=== PATIENT | female | born 1995 | race African-American/Black ===

== ENCOUNTER 2018-03-31 07:25 | Inpatient (IN) ==
[2018-03-31] MEDS ORDERED: ONDANSETRON 4 MG/2 ML VIAL IV PRN (07:50)
[2018-03-31] MEDS ORDERED: BUTORPHANOL 2 MG/ML VIAL IV PRN (07:50)
[2018-03-31] MEDS ORDERED: MEPERIDINE 50 MG/1 ML VIAL IV PRN (07:50)
[2018-03-31] MEDS ORDERED: AMPICILLIN INJ 2,000 MG in SODIUM CHLORIDE 0.9% 100 ML IV ONE (07:52)
[2018-03-31] MEDS ORDERED: LACTATED RINGERS 1,000 ML IV SCH ×2 (08:00→12:30)
[2018-03-31] MEDS ORDERED: OXYTOCIN/LR 20 UNIT/1,000 ML BAG IV SCH (08:00)
[2018-03-31] MEDS ORDERED: ONDANSETRON 4 MG/2 ML VIAL IV ONE (08:40)
[2018-03-31] MEDS ORDERED: hydrOXYzine HCL 25 MG/1 ML VIAL IM PRN (08:40)
[2018-03-31] MEDS ORDERED: diphenhydrAMINE 50 MG/1 ML VIAL IV PRN ×2 (08:40)
[2018-03-31] MEDS ORDERED: CITRIC ACID/SODIUM CITRATE 30 ML UDCUP PO ONE (08:40)
[2018-03-31] MEDS ORDERED: PROMETHAZINE 25 MG/1 ML VIAL IM ONE (08:40)
[2018-03-31] MEDS ORDERED: ePHEDrine 50 MG/ML AMP IV PRN (08:40)
[2018-03-31] MEDS ORDERED: FAMOTIDINE 20 MG/2 ML VIAL IV ONE (08:40)
[2018-03-31] MEDS ORDERED: NALOXONE 0.4 MG/ML VIAL IV PRN (08:40)
[2018-03-31 08:41] LABS: Basophils # 0.1 10*3/uL (0.0-0.2); Basophils % 0.6 % (0.0-0.8); Eosinophils # 0.2 10*3/uL (0.0-0.87); Eosinophils % 1.9 % (0.00-10.9); Hematocrit 31.6 VOL% (35.7-47.0); Hemoglobin 10.1 GM/DL (12.0-16.0); Immature Granulocytes % 2.5 %; Immature Granulocytes Absolute 0.25 #; Lymphocytes # 2.1 10*3/uL (1.4-4.0); Mean Corpuscular Hemoglobin 28 PG (27-34); Mean Corpuscular Volume 87.5 FL (87-102); Mean Platelet Volume 10.6 FL (9.6-12.0); Monocytes # 0.9 10*3/uL (0.11-0.8); Monocytes % 9.3 % (1.7-12.7); Neutrophils # 6.6 10*3/uL (1.4-7.4); Neutrophils % 64.7 % (38.7-73.9); Platelet Count 266 T/CUMM (130-400); Red Blood Count 3.61 MC/CUMM (3.8-5.5); Red Cell Distribution Width 14.1 % (9.3-17.3); White Blood Count 10.1 T/CUMM (4-12)
[2018-03-31] MEDS ORDERED: fentaNYL 2 MCG/ROPIV 0.2% EPID 100 ML EPIDURAL SCH (09:00)
[2018-03-31 09:06] LABS: Albumin 2.7 G/DL (3.4-5.0); Bilirubin,Total 0.4 MG/DL (0.2-1.0); Calcium 8.4 MG/DL (8.5-10.1)
[2018-03-31 09:07] LABS: Osmolality,Calculated 272.8 MOS/KG (273-304); Potassium 3.8 MMOL/L (3.5-5.1)
[2018-03-31 10:09] LABS: Rapid Plasma Reagin Confirm NONREACTIVE (Nonreactive)
[2018-03-31] MEDS ORDERED: BISACODYL 10 MG SUPP RECTAL PRN (12:16)
[2018-03-31] MEDS ORDERED: MAGNESIUM HYDROXIDE SUSP 30 ML UDCUP PO PRN (12:16)
[2018-03-31] MEDS ORDERED: ACETAMINOPHEN 325 MG TABLET PO PRN (12:16)
[2018-03-31] MEDS: IBUPROFEN 800 MG TABLET PO PRN ×2 (13:56→21:53)
[2018-03-31] MEDS: DOCUSATE SODIUM 100 MG CAPSULE PO SCH (20:29)
[2018-04-01 07:08] LABS: Basophils % 0.3 % (0.0-0.8); Eosinophils # 0.2 10*3/uL (0.0-0.87); Eosinophils % 1.5 % (0.00-10.9); Hematocrit 28.1 VOL% (35.7-47.0); Hemoglobin 9.3 GM/DL (12.0-16.0); Immature Granulocytes % 1.2 %; Immature Granulocytes Absolute 0.15 #; Lymphocytes # 2.8 10*3/uL (1.4-4.0); Lymphocytes % 23.2 % (21.3-54.2); Mean Corpuscular HGB Conc 33.1 GM/DL (32-36); Mean Corpuscular Hemoglobin 29 PG (27-34); Mean Corpuscular Volume 86.5 FL (87-102); Monocytes % 7.8 % (1.7-12.7); Neutrophils # 8.1 10*3/uL (1.4-7.4); Platelet Count 245 T/CUMM (130-400); Red Blood Count 3.25 MC/CUMM (3.8-5.5); Red Cell Distribution Width 14.2 % (9.3-17.3); White Blood Count 12.2 T/CUMM (4-12)
[2018-04-01] MEDS: IBUPROFEN 800 MG TABLET PO PRN ×2 (08:18→19:46)
[2018-04-01] MEDS: valACYclovir 500 MG TABLET PO SCH (08:18)
[2018-04-01] MEDS: MULTIVITAMIN (PRENATAL) TABLET PO SCH (08:18)
[2018-04-01] MEDS: DOCUSATE SODIUM 100 MG CAPSULE PO SCH ×2 (08:18→19:46)
[2018-04-01] MEDS: IRON (CARBONYL)/VIT C/B12/FA TABLET PO SCH (11:51)
[2018-04-02] MEDS: DOCUSATE SODIUM 100 MG CAPSULE PO SCH ×2 (01:40→08:06)
[2018-04-02] MEDS: IBUPROFEN 800 MG TABLET PO PRN (08:06)
[2018-04-02] MEDS: IRON (CARBONYL)/VIT C/B12/FA TABLET PO SCH (08:06)
[2018-04-02] MEDS: valACYclovir 500 MG TABLET PO SCH (08:06)
[2018-04-02] MEDS: MULTIVITAMIN (PRENATAL) TABLET PO SCH (08:06)
[2018-04-02 08:14] VITALS: BP 115/64
[2018-04-02] MEDS ORDERED: DIPH/TET/ACEL PERT BOOSTER VACCINE 0.5 ML VIAL IM ONE (09:16)
== END 2018-04-02 10:55 | disposition home or self-care (01) | DRG 560 ==
LOC: N.LDOUT 07:25 → N.LD 07:26 → N.OB 12:16
PROVIDERS: ADMIT Obstetrics & Gynecology; ATTEND Obstetrics & Gynecology

== ENCOUNTER 2019-06-09 19:48 | Inpatient (IN) ==
[2019-06-09] MEDS ORDERED: DINOPROSTONE 10 MG VAG.INSERT VAG ONE (20:29)
[2019-06-09] MEDS ORDERED: ONDANSETRON 4 MG/2 ML VIAL IV PRN (20:29)
[2019-06-09] MEDS ORDERED: MEPERIDINE 50 MG/1 ML VIAL IV PRN (20:29)
[2019-06-09] MEDS ORDERED: BUTORPHANOL 2 MG/ML VIAL IV PRN (20:29)
[2019-06-09] MEDS: LACTATED RINGERS 1,000 ML IV SCH (20:30)
[2019-06-09 20:50] LABS: Basophils % 0.3 % (0.0-0.8); Eosinophils # 0.3 10*3/uL (0.0-0.87); Eosinophils % 2.3 % (0.00-10.9); Hematocrit 29.5 VOL% (35.7-47.0); Hemoglobin 9.4 GM/DL (12.0-16.0); Immature Granulocytes % 1.6 %; Immature Granulocytes Absolute 0.21 #; Lymphocytes # 2.8 10*3/uL (1.4-4.0); Lymphocytes % 21.6 % (21.3-54.2); Mean Corpuscular HGB Conc 31.9 GM/DL (32-36); Mean Corpuscular Volume 85.3 FL (87-102); Mean Platelet Volume 10.4 FL (9.6-12.0); Monocytes % 8.8 % (1.7-12.7); Neutrophils % 65.4 % (38.7-73.9); Platelet Count 259 T/CUMM (130-400); Red Blood Count 3.46 MC/CUMM (3.8-5.5); Red Cell Distribution Width 14.4 % (9.3-17.3); White Blood Count 12.8 T/CUMM (4-12)
[2019-06-09] MEDS ORDERED: AMPICILLIN INJ 2,000 MG in SODIUM CHLORIDE 0.9% 100 ML IV ONE (22:41)
[2019-06-10] MEDS ORDERED: AMPICILLIN INJ 2,000 MG in SODIUM CHLORIDE 0.9% 100 ML IV ONE
[2019-06-10 02:14] LABS: Rapid Plasma Reagin Confirm REACTIVE (Nonreactive)
[2019-06-10] MEDS: AMPICILLIN INJ 1,000 MG in SODIUM CHLORIDE 0.9% 100 ML IV SCH ×2 (04:12→08:08)
[2019-06-10] MEDS ORDERED: OXYTOCIN/LR 20 UNIT/1,000 ML BAG IV ONE ×2 (04:42→13:20)
[2019-06-10] MEDS ORDERED: OXYTOCIN/LR 20 UNIT/1,000 ML BAG IV SCH (06:00)
[2019-06-10] MEDS: LACTATED RINGERS 1,000 ML IV SCH (06:14)
[2019-06-10] MEDS ORDERED: LACTATED RINGERS 1,000 ML IV ONE (08:58)
[2019-06-10] MEDS ORDERED: NALOXONE 0.4 MG/ML VIAL IV PRN (08:58)
[2019-06-10] MEDS ORDERED: FAMOTIDINE 20 MG/2 ML VIAL IV ONE (08:58)
[2019-06-10] MEDS ORDERED: diphenhydrAMINE 50 MG/1 ML VIAL IV PRN ×2 (08:58)
[2019-06-10] MEDS ORDERED: CITRIC ACID/SODIUM CITRATE 30 ML UDCUP PO ONE (08:58)
[2019-06-10] MEDS ORDERED: ePHEDrine 50 MG/ML AMP IV PRN (08:58)
[2019-06-10] MEDS ORDERED: fentaNYL 2 MCG/ROPIV 0.2% EPID 100 ML EPIDURAL SCH (09:00)
[2019-06-10] MEDS ORDERED: IBUPROFEN 800 MG TABLET PO PRN (15:14)
[2019-06-10] MEDS ORDERED: IBUPROFEN 800 MG TABLET ONE (15:16)
[2019-06-10] MEDS ORDERED: MAGNESIUM HYDROXIDE SUSP 30 ML UDCUP PO PRN (18:38)
[2019-06-10] MEDS ORDERED: BISACODYL 10 MG SUPP RECTAL PRN (18:38)
[2019-06-10] MEDS ORDERED: ACETAMINOPHEN 325 MG TABLET PO PRN (18:38)
[2019-06-10] MEDS ORDERED: ONDANSETRON 4 MG/2 ML VIAL IV PRN (18:38)
[2019-06-10] MEDS ORDERED: LACTATED RINGERS 1,000 ML IV SCH (19:00)
[2019-06-10] MEDS: KETOROLAC 15 MG/1 ML VIAL IV SCH (19:46)
[2019-06-10] MEDS ORDERED: DOCUSATE SODIUM 100 MG CAPSULE PO SCH (21:00)
[2019-06-10] MEDS: DOCUSATE SODIUM 100 MG CAPSULE PO SCH (21:24)
[2019-06-11] MEDS: KETOROLAC 15 MG/1 ML VIAL IV SCH (01:22)
[2019-06-11] MEDS: IBUPROFEN 800 MG TABLET PO SCH ×3 (01:39→17:51)
[2019-06-11 06:22] LABS: Basophils % 0.4 % (0.0-0.8); Eosinophils # 0.2 10*3/uL (0.0-0.87); Eosinophils % 1.7 % (0.00-10.9); Hematocrit 27.9 VOL% (35.7-47.0); Hemoglobin 8.7 GM/DL (12.0-16.0); Immature Granulocytes % 1.2 %; Immature Granulocytes Absolute 0.13 #; Lymphocytes # 2.7 10*3/uL (1.4-4.0); Lymphocytes % 24.2 % (21.3-54.2); Mean Corpuscular HGB Conc 31.2 GM/DL (32-36); Mean Corpuscular Volume 86.4 FL (87-102); Mean Platelet Volume 10.5 FL (9.6-12.0); Monocytes % 8.4 % (1.7-12.7); Neutrophils % 64.1 % (38.7-73.9); Platelet Count 211 T/CUMM (130-400); Red Blood Count 3.23 MC/CUMM (3.8-5.5); Red Cell Distribution Width 14.6 % (9.3-17.3); White Blood Count 11.3 T/CUMM (4-12)
[2019-06-11] MEDS: MULTIVITAMIN (PRENATAL) TABLET PO SCH (09:56)
[2019-06-11] MEDS: ACYCLOVIR 800 MG TABLET PO SCH (09:56)
[2019-06-11] MEDS: DOCUSATE SODIUM 100 MG CAPSULE PO SCH ×2 (09:56→21:18)
[2019-06-11] MEDS: IRON (CARBONYL)/VIT C/B12/FA TABLET PO SCH (17:54)
[2019-06-12] MEDS: IBUPROFEN 800 MG TABLET PO SCH (03:58)
[2019-06-12 07:27] VITALS: BP 135/69
[2019-06-12] MEDS: DOCUSATE SODIUM 100 MG CAPSULE PO SCH (09:11)
[2019-06-12] MEDS: MULTIVITAMIN (PRENATAL) TABLET PO SCH (09:11)
[2019-06-12] MEDS: ACYCLOVIR 800 MG TABLET PO SCH (09:11)
[2019-06-12] MEDS: IRON (CARBONYL)/VIT C/B12/FA TABLET PO SCH (09:11)
== END 2019-06-12 12:00 | disposition home or self-care (01) | DRG 560 ==
LOC: N.LDOUT 19:48 → N.LD 19:49 → N.OB 06-10 13:59
PROVIDERS: ADMIT Obstetrics & Gynecology; ATTEND Obstetrics & Gynecology

== ENCOUNTER 2021-01-18 09:10 | Inpatient (IN) ==
[2021-01-18] MEDS ORDERED: ONDANSETRON 4 MG/2 ML VIAL IV PRN ×2 (09:52→19:30)
[2021-01-18] MEDS ORDERED: LACTATED RINGERS 1,000 ML IV SCH ×2 (10:00→19:30)
[2021-01-18] MEDS ORDERED: OXYTOCIN/LR 20 UNIT/1,000 ML BAG IV SCH (10:00)
[2021-01-18 10:20] LABS: Basophils # 0.1 10*3/uL (0.0-0.2); Basophils % 0.5 % (0.0-0.8); Eosinophils # 0.2 10*3/uL (0.0-0.87); Eosinophils % 1.2 % (0.00-10.9); Hematocrit 32.6 VOL% (35.7-47.0); Hemoglobin 10.3 GM/DL (12.0-16.0); Immature Granulocytes % 4.5 %; Immature Granulocytes Absolute 0.58 #; Lymphocytes # 2.1 10*3/uL (1.4-4.0); Mean Corpuscular HGB Conc 31.6 GM/DL (32-36); Mean Corpuscular Volume 81.7 FL (87-102); Mean Platelet Volume 9.7 FL (9.6-12.0); Monocytes % 12.9 % (1.7-12.7); Neutrophils % 64.9 % (38.7-73.9); Platelet Count 325 T/CUMM (130-400); Red Blood Count 3.99 MC/CUMM (3.8-5.5); Red Cell Distribution Width 14.6 % (9.3-17.3); White Blood Count 12.8 T/CUMM (4-12)
[2021-01-18 10:39] LABS: Band Neutrophils 1 % (0-10); Eosinophils 2 % (0-10); Lymphocytes 14 % (20-55); Platelet Estimate Adequate; Segmented Neutrophils 76 % (50-85); Total Cells Counted 100
[2021-01-18] MEDS ORDERED: ePHEDrine 50 MG/ML VIAL IV PRN (10:58)
[2021-01-18] MEDS ORDERED: CITRIC ACID/SODIUM CITRATE 30 ML UDCUP PO ONE (10:58)
[2021-01-18] MEDS ORDERED: hydrOXYzine HCL 25 MG/1 ML VIAL IM PRN (10:58)
[2021-01-18] MEDS ORDERED: FAMOTIDINE 20 MG/2 ML VIAL IV ONE (10:58)
[2021-01-18] MEDS ORDERED: NALOXONE 0.4 MG/ML VIAL IV PRN (10:58)
[2021-01-18] MEDS ORDERED: PROMETHAZINE 25 MG/1 ML VIAL IM ONE (10:58)
[2021-01-18] MEDS ORDERED: ONDANSETRON 4 MG/2 ML VIAL IV ONE (10:58)
[2021-01-18] MEDS ORDERED: LACTATED RINGERS 1,000 ML IV ONE (10:58)
[2021-01-18] MEDS ORDERED: diphenhydrAMINE 50 MG/1 ML VIAL IV PRN ×2 (10:58)
[2021-01-18] MEDS ORDERED: fentaNYL 2 MCG/ROPIV 0.2% EPID 100 ML EPIDURAL SCH (11:00)
[2021-01-18 12:50] LABS: RPR Confirm - Less than 1 yr REACTIVE (Nonreactive)
[2021-01-18 14:35] LABS: Bacteria,Urine Occasional /HPF (Few); Bilirubin,Urine Negative (Negative); Blood, Urine Negative (Negative); Glucose,Urine (UA) Negative (Negative); Ketones,Urine 5 mg/dL (Negative); Mucus,Urine Occasional /LPF (Occasional); Nitrite,Urine Positive (Negative); Protein,Urine Negative; RBC,Urine 1 /HPF (0-4); Squamous Epithelial Cell,Urine Occasional /HPF (0-10); Urine Appearance Slightly Hazy (Clear); Urine Color Yellow (Yellow); Urine Specific Gravity 1.005 (1.001-1.035)
[2021-01-18 14:40] LABS: Barbiturates Screen,Urine Negative (Negative); Benzodiazepines Screen,Urine Negative (Negative); Cannabinoid Screen,Urine Positive (Negative); Opiate Screen,Urine Negative (Negative); Phencyclidine Screen,Urine Negative (Negative)
[2021-01-18] MEDS ORDERED: miSOPROStoL 200 MCG TABLET ONE (14:59)
[2021-01-18 15:40] LABS: Cord Venous Blood HCO3 25.3 MMOL/L; Cord Venous Blood PCO2 41.6 MMHG; Cord Venous Blood PO2 30.3
[2021-01-18] MEDS ORDERED: WITCH HAZEL PADS 100/JAR TOP PRN (18:45)
[2021-01-18] MEDS ORDERED: LANOLIN 50% CREAM 0.3 OZ TUBE TOP PRN (18:45)
[2021-01-18] MEDS ORDERED: BISACODYL 10 MG SUPP RECTAL PRN ×2 (18:45→19:30)
[2021-01-18] MEDS ORDERED: HYDROCORTISONE 2.5% RECTAL CREAM 30 GM TUBE TOP PRN (18:45)
[2021-01-18] MEDS ORDERED: ACETAMINOPHEN 325 MG TABLET PO PRN ×2 (18:45→19:30)
[2021-01-18] MEDS ORDERED: DIPH/TET/ACEL PERT BOOSTER VACCINE 0.5 ML VIAL IM ONE (18:45)
[2021-01-18] MEDS ORDERED: MEASLES/MUMPS/RUBELLA VACCINE 0.5 ML VIAL SUBCUT ONE (18:45)
[2021-01-18] MEDS ORDERED: BENZOCAINE 20%/MENTHOL 0.5% SPRAY 56 GM CAN TOP PRN (18:45)
[2021-01-18] MEDS ORDERED: MAGNESIUM HYDROXIDE SUSP 30 ML UDCUP PO PRN (19:30)
[2021-01-18] MEDS ORDERED: IBUPROFEN 800 MG TABLET PO PRN (19:30)
[2021-01-18] MEDS ORDERED: OXYTOCIN/LR 20 UNIT/1,000 ML BAG IV ONE (19:33)
[2021-01-18] MEDS: IBUPROFEN 800 MG TABLET PO PRN (19:35)
[2021-01-18] MEDS ORDERED: DOCUSATE SODIUM 100 MG CAPSULE PO SCH (21:00)
[2021-01-18] MEDS: DOCUSATE SODIUM 100 MG CAPSULE PO SCH (21:15)
[2021-01-19 05:40] LABS: Basophils % 0.3 % (0.0-0.8); Eosinophils # 0.2 10*3/uL (0.0-0.87); Eosinophils % 1.5 % (0.00-10.9); Hemoglobin 10.2 GM/DL (12.0-16.0); Immature Granulocytes % 4.1 %; Immature Granulocytes Absolute 0.51 #; Lymphocytes # 1.9 10*3/uL (1.4-4.0); Lymphocytes % 15.6 % (21.3-54.2); Mean Corpuscular HGB Conc 31.9 GM/DL (32-36); Mean Corpuscular Volume 82.9 FL (87-102); Mean Platelet Volume 9.9 FL (9.6-12.0); Monocytes % 8.9 % (1.7-12.7); Neutrophils % 69.6 % (38.7-73.9); Platelet Count 335 T/CUMM (130-400); Red Blood Count 3.86 MC/CUMM (3.8-5.5); Red Cell Distribution Width 14.6 % (9.3-17.3); White Blood Count 12.3 T/CUMM (4-12)
[2021-01-19 06:07] LABS: Band Neutrophils 2 % (0-10); Lymphocytes 15 % (20-55); Segmented Neutrophils 73 % (50-85); Total Cells Counted 100
[2021-01-19 06:08] LABS: Platelet Estimate Normal
[2021-01-19] MEDS: ACYCLOVIR 800 MG TABLET PO SCH (08:37)
[2021-01-19] MEDS: DOCUSATE SODIUM 100 MG CAPSULE PO SCH ×2 (08:37→20:46)
[2021-01-19] MEDS: MULTIVITAMIN (PRENATAL) TABLET PO SCH (08:38)
[2021-01-19] MEDS: IBUPROFEN 800 MG TABLET PO PRN ×2 (12:54→23:15)
[2021-01-20] MEDS: cephALEXin 500 MG CAPSULE PO SCH ×2 (01:22→08:29)
[2021-01-20 07:34] VITALS: BP 137/76
[2021-01-20] MEDS: ACYCLOVIR 800 MG TABLET PO SCH (08:26)
[2021-01-20] MEDS: MULTIVITAMIN (PRENATAL) TABLET PO SCH (08:26)
[2021-01-20] MEDS: DOCUSATE SODIUM 100 MG CAPSULE PO SCH (08:26)
== END 2021-01-20 10:10 | disposition home or self-care (01) | DRG 560 ==
LOC: N.LD 09:10 → N.OB 20:05
PROVIDERS: ADMIT Obstetrics & Gynecology; ATTEND Obstetrics & Gynecology